=== PATIENT | female | born 1950 | race Caucasian/White ===

== ENCOUNTER → 2021-04-15 | Outpatient (CLI) | payer OTHER ==
[~2021-04-15] MED LIST: AMITRIPTYLINE H10 MG PO; CITALOPRAM HBR20 MG PO; CLINDAMYCIN HC300 MG PO; HYDROCODON-ACE1 EAC4 PO; IMURAN50 MG PO; LEVOFLOXACIN500 MG PO; LISINOPRIL10 MG PO; METOPROLOL TART25 MG PO; ULTRAM50 MG PO
== END ==
LOC: HEART 5 13:20
DX: I50.22 Chronic systolic (congestive) heart failure (principal); I42.0 Dilated cardiomyopathy; I47.2 Ventricular tachycardia; I51.7 Cardiomegaly; Z95.0 Presence of cardiac pacemaker
CPT/HCPCS: 93306

== ENCOUNTER → 2021-04-22 | Outpatient (CLI) | payer OTHER ==
[2021-04-22 12:47] LABS: HEMOGLOBIN 12.9 gm/dl (12.3-15.3); RED BLOOD COUNT 4.34 M/UL (4.00-5.10); WHITE BLOOD COUNT 5.8 K/UL (4.5-11.0)
[2021-04-22 13:07] LABS: BUN/CREATININE RATIO 21 (0-10)
== END ==
LOC: LAB 10:48
PROVIDERS: Internal Medicine Cardiovascular Disease
DX: I50.22 Chronic systolic (congestive) heart failure (principal); I42.0 Dilated cardiomyopathy; I47.2 Ventricular tachycardia; Z45.02 Encounter for adjustment and management of automatic implantable cardiac defibrillator; Z86.74 Personal history of sudden cardiac arrest
CPT/HCPCS: 36415; 71046; 80048; 85025

== ENCOUNTER → 2021-04-24 | Outpatient (CLI) | payer OTHER | LOC: CATH 07:03 | DX: Z45.02 Encounter for adjustment and management of automatic implantable cardiac defibrillator (principal); I50.22 Chronic systolic (congestive) heart failure; I47.2 Ventricular tachycardia; I42.0 Dilated cardiomyopathy; M19.079 Primary osteoarthritis, unspecified ankle and foot; G43.909 Migraine, unspecified, not intractable, without status migrainosus; K50.90 Crohn's disease, unspecified, without complications; Z86.74 Personal history of sudden cardiac arrest; Z79.891 Long term (current) use of opiate analgesic; Z79.899 Other long term (current) drug therapy | CPT/HCPCS: 93641; 99152; 99153; C1882; J1200; J2250; J3010; J3370; J7040; J7050 ==

== ENCOUNTER → 2022-07-20 | Outpatient (CLI) | payer OTHER | LOC: MAMO 07-07 09:30 → EXRD 07-07 10:30 → MAMO 07-15 09:30 → EXRD 07-19 15:00 → MAMO 09:16 | DX: Z12.31 Encounter for screening mammogram for malignant neoplasm of breast (principal); M81.0 Age-related osteoporosis without current pathological fracture | CPT/HCPCS: 77063; 77067; 77080 ==